=== PATIENT | female | born 1950 | race Two or more races ===

== ENCOUNTER 2025-10-25 22:55 | Emergency (ER) | payer MEDICARE, OTHER ==
[~2025-10-25] VITALS: Ht 165.1 cm; Wt 90.7 kg
[2025-10-25] MEDS ORDERED: ONDANSETRON HCL/PF 4 MG/2 ML VIAL ONE (23:17)
[2025-10-25] MEDS ORDERED: MORPHINE SULFATE INJ 4 MG/ML DISP.SYRIN ONE (23:17)
[2025-10-25] MEDS ORDERED: PANTOPRAZOLE 40 MG VIAL ONE (23:17)
[2025-10-25] MEDS: PANTOPRAZOLE 40 MG VIAL IV ONE (23:25)
[2025-10-25] MEDS ORDERED: IV NS 0.9% 1,000 ML BAG IV ONE (23:30)
[2025-10-25 23:37] LABS: PLATELET COUNT (AUTO) 236 K/uL (150-450); RED BLOOD CELL COUNT(AUTO) 3.90 MIL/uL (4.0-5.2); RED CELL DISTRIBUTION WIDTH 16.5 % (11.5-15.0); WHITE BLOOD COUNT (AUTO) 7.6 K/uL (4.3-11.0)
[2025-10-25 23:52] LABS: CALCIUM, SERUM 8.3 mg/dL (8.5-10.1); CREATININE 1.4 mg/dL (0.6-1.3); SODIUM SERUM 144 mmol/L (136-145); UREA NITROGEN, BLOOD 31 mg/dL (7-18)
[2025-10-25 23:54] LABS: LACTIC ACID 1.9 mmol/L (0.4-2.0)
[2025-10-25 23:57] LABS: ASPARTATE AMINOTRANSFERASE 13 U/L (15-37); TOTAL PROTEIN, SERUM 7.1 g/dL (6.4-8.2)
[2025-10-25] MEDS: ONDANSETRON HCL/PF 4 MG/2 ML VIAL IV ONE (23:57)
[2025-10-25] MEDS: MORPHINE SULFATE INJ 2 MG/ML DISP.SYRIN IV ONE (23:57)
[2025-10-26] MEDS ORDERED: LIDOCAINE VISCOUS 2% UD 15 ML UDC ONE (00:34)
[2025-10-26] MEDS ORDERED: MAG HYDROX/AL HYDROX/SIMETH 30 ML UDC ONE (00:34)
[2025-10-26] MEDS ORDERED: METOCLOPRAMIDE HCL 10 MG/2 ML VIAL ONE (00:35)
[2025-10-26] MEDS: MAG HYDROX/AL HYDROX/SIMETH 30 ML UDC PO ONE (00:56)
[2025-10-26] MEDS: LIDOCAINE VISCOUS 2% UD 15 ML UDC MM ONE (00:56)
[2025-10-26] MEDS: METOCLOPRAMIDE HCL 10 MG/2 ML VIAL IV ONE (00:56)
[2025-10-26 01:27] LABS: APPEARANCE,URINE CLOUDY (CLEAR); BLOOD, URINE 1+ Ery/uL (NEGATIVE); LEUKOCYTE ESTERASE ,URINE 1+ (NEGATIVE); NITRITE, URINE POSITIVE (NEGATIVE); UGLUCOSE NEGATIVE (NEGATIVE)
[2025-10-26] MEDS ORDERED: PANT40TA2 PO (01:44)
[2025-10-26] MEDS ORDERED: ONDA4TAB5 PO (01:44)
[2025-10-26] MEDS ORDERED: DICY10CA37 PO (01:44)
[2025-10-26] MEDS ORDERED: ACET-3102 PO (01:44)
[2025-10-26 01:56] LABS: ADD URINE CULTURE YES; SQUAMOUS EPITHELIAL CELL,UR Few /HPF (None Seen); YEAST,URINE None Seen /HPF (None Seen)
[2025-10-26] MEDS ORDERED: DICYCLOMINE HCL 10 MG CAPSULE PO ONE (02:04)
[2025-10-26] MEDS ORDERED: MORPHINE SULFATE INJ 2 MG/ML DISP.SYRIN ONE (02:04)
[2025-10-26] MEDS: MORPHINE SULFATE INJ 2 MG/ML DISP.SYRIN IV ONE (02:10)
[2025-10-26] MEDS: DICYCLOMINE HCL 10 MG CAPSULE PO ONE (02:10)
[2025-10-26 02:36] VITALS: BP 135/72; TEMP 97; O2SAT 97
== END 2025-10-26 02:38 | disposition home or self-care (01) ==
LOC: ER 22:57
DX: K29.70 Gastritis, unspecified, without bleeding (principal); I11.0 Hypertensive heart disease with heart failure; I48.91 Unspecified atrial fibrillation; Z79.899 Other long term (current) drug therapy; Z95.0 Presence of cardiac pacemaker
CPT/HCPCS: 99285; 74176; 96374; 71045; 93005; 85025; 83605; 83690; 83735; 36415; 80053; 86140; 96375; 87077; 87086; 87186; 81001; J2270 ×2; J2405; J2470; J1200; J2765